=== PATIENT | female | born 1950 | race Caucasian/White ===

== ENCOUNTER 2018-08-29 15:26 | Emergency (ER) | payer OTHER, MEDICARE ==
[2018-08-29 15:42] VITALS: BP 148/80; PULSE 87; TEMP 97.6; BMI 29.9
--- NOTE | 2018-08-29 16:49 | PDOC ---
History of Present Illness - General Chief Complaint: Pain Stated Complaint: RIGHT SHOULDER PAIN Time Seen by Provider: 08/29/18 16:35 History Source: Patient Exam Limitations: No Limitations - History of Present Illness Initial Comments: 08/29/18 16:49 Patient here with multiple complaints and lists of medications and questions, concerned about 2 weeks of right shoulder and back pain. States was carrying some heavy bags upstairs 2 weeks ago and wonders if that may have relationship to her upper back pain. Denies numbness or tingling to hands, denies history of cervical spine issue. Has tried Aleve with minimal resolved area Denies fever, denies cough or shortness of breath although worried may have a pneumonia as her Internet search listed pulmonary disease is a differential for back pain. 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 States worries about an ALLERGY to Zyrtec as every 4 days that she takes Zyrtec , eighth after 4 days when his ear tech wears she feels very tired and feels that rash reoccurs. Occurred: reports: last week Severity: reports: mild, moderate Pain Location: reports: upper extremity (right shoulder) Method of Injury: Yes: unknown Loss of Consciousness: no loss of consciousness Associated Symptoms (Fall): muscle spasms Past History - Travel Traveled outside of the country in the last 30 days: No Close contact w/someone who was outside of country & ill: No - Past Medical History Allergies/Adverse Reactions: Allergies Allergy/AdvReac Type Severity Reaction Status Date / Time monosodium glutamate Allergy Intermediate migraines Unverified 08/29/18 15:42 verapamil HCl [From [facility]] Allergy Intermediate Weakness Unverified 08/29/18 15: 42 albuterol Allergy Swelling Verified 08/29/18 15:42 artificial sweeteners AdvReac Intermediate Migraines Uncoded 08/29/18 15:42 ARTIFICIAL SWEETNERS AdvReac Uncoded 08/29/18 15:42 MSG AdvReac Uncoded 08/29/18 15:42 Home Medications: Ambulatory Orders Esomeprazole Mag Trihydrate [Nexium] 40 mg PO DAILY 01/22/13 Estrogens,Conjugated [Premarin -] 0.625 mg PO DAILY 01/22/13 Furosemide [Lasix -] 40 mg PO DAILY 01/22/13 Lisinopril [Prinivil] 10 mg PO DAILY 01/22/13 Aspirin [Ecotrin] 81 mg PO DAILY 05/04/15 Atorvastatin Ca [Lipitor] 20 mg PO HS 05/04/15 Diltiazem HCl [Tiazac] 240 mg PO DAILY 05/04/15 Docusate Sodium [Colace] 100 mg PO BID 05/04/15 Cardiac Disorders: Yes (SKIPPED HEART BEAT MVP) COPD: No HTN: Yes - Suicide/Smoking/Psychosocial Hx Smoking Status: No Smoking History: Never smoked Have you smoked in the past 12 months: No Number of Cigarettes Smoked Daily: 0 Hx Alcohol Use: No Substance Use Type: None Review of Systems - Review of Systems Able to Perform ROS?: Yes Is the patient limited Mohawk proficient: Yes Constitutional: Yes: Symptoms Reported, See HPI, Malaise. No: Chills, Fever, Loss of Appetite HEENTM: Yes: See HPI. No: Symptoms Reported, Nose Congestion Respiratory: Yes: See HPI. No: Symptoms reported, Cough, Shortness of Breath, Wheezing Cardiac (ROS): Yes: See HPI. No: Symptoms Reported, Palpitations Musculoskeletal: Yes: Symptoms Reported, See HPI, Muscle Pain Integumentary: Yes: Symptoms Reported, See HPI Neurological: Yes: Symptoms reported, See HPI, Headache All Other Systems: Reviewed and Negative *Physical Exam - Vital Signs Last Vital Signs Temp Pulse Resp BP Pulse Ox 97.6 F 87 18 148/80 97 08/29/18 15:37 08/29/18 15:37 08/29/18 15:37 08/29/18 15:37 08/29/18 15:37 - Physical Exam General Appearance: Yes: Nourished, Appropriately Dressed. No: Apparent Distress HEENT: positive: CHAND[place], Normal ENT Inspection, TMs Normal, Pharynx Normal Respiratory/Chest: negative: Decreased Breath Sounds Gastrointestinal/Abdominal: positive: Normal Bowel Sounds, Soft Musculoskeletal: positive: Normal Inspection, Muscle Spasm (tight notty musculature of right upper back and scapular area. States spasm elevated midpoint trapezius and reproduce tenderness with pressure to inferior insertion of sternocleidomastoid primarily right side.). 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 given Torodol 30mg IM *DC/Admit/Observation/Transfer Diagnosis at time of Disposition: Spasm of back muscles - Discharge Dispostion Disposition: HOME Condition at time of disposition: Stable Decision to Admit order: No - Referrals Referrals: Tae Miranda MD [Primary Care Provider] - - Patient Instructions Printed Discharge Instructions: DI for Muscle Strain Additional Instructions: Rest, no heavy lifting or exercise until pain is resolved Hot soaks to neck and low back as often as possible/hot showers or Jacuzzis No massage or therapy until spasm is gone Continue Naprosyn 500 mg tablet, 1 tablet every 12 hours for the next 3 days then as needed for pain and swelling If not significant improvement within 24 hours with medication and rest regime, followup with private physician for change in medications and /or therapy. - Post Discharge Activity Forms/Work/School Notes: Back to Work
[2018-08-29] MEDS ORDERED: KETOROLAC TROMETHAMINE 60 MG/2 ML VIAL IM ONE (17:05)
[2018-08-29] MEDS ORDERED: KETOROLAC TROMETHAMINE 30 MG/1 ML VIAL ONE (17:07)
== END 2018-08-29 17:31 | disposition home or self-care (01) ==
LOC: JERFT 15:26
PROC: 3E0233Z Introduction of Anti-inflammatory into Muscle, Percutaneous Approach (ICD-10-PCS; principal; 2018-08-29)
DX: M62.830 Muscle spasm of back (principal); I10 Essential (primary) hypertension; I34.1 Nonrheumatic mitral (valve) prolapse
CPT/HCPCS: 96372; 99281-25